=== PATIENT | male | born 1950 | race Caucasian/White ===

== ENCOUNTER 2023-06-06 23:27 | Emergency (ER) | payer MEDICAID ==
[~2023-06-06] VITALS: Ht 160 cm; Wt 71.2 kg
[2023-06-06 23:41] VITALS: BP 137/75; PULSE 60; RESP 16; TEMP 97.3
[2023-06-07 01:49] LABS: BASOPHILS % (AUTO) 0.4 % (0.0-2.0); EOSINOPHILS % (AUTO) 0.3 % (0.0-4.0); HEMATOCRIT 47.5 % (36-52); HEMOGLOBIN 15.8 g/dL (12.0-18.0); LYMPHOCYTES # (AUTO) 0.9 K/uL (2.0-11.5); LYMPHOCYTES % (AUTO) 9.3 % (20.5-51.1); MEAN CORPUSCULAR HEMOGLOBIN 30 pg (27-31); MEAN CORPUSCULAR HGB CONC 33 g/dL (33-37); MEAN CORPUSCULAR VOLUME 89.4 fL (80-94); MONOCYTES # (AUTO) 0.4 K/uL (0.8-1.0); MONOCYTES % (AUTO) 3.7 % (1.7-9.3); NEUTROPHILS # (AUTO) 8.2 K/uL (1.8-7.7); NEUTROPHILS % (AUTO) 86.3 % (42.2-75.2); PLATELET COUNT (AUTO) 206 K/uL (140-450); RED BLOOD CELL COUNT(AUTO) 5.31 MIL/uL (4.20-6.10); RED CELL DISTRIBUTION WIDTH 13.6 % (11.6-13.7); WHITE BLOOD COUNT (AUTO) 9.5 K/uL (4.8-10.8)
[2023-06-07 02:15] LABS: ANION GAP 14.8 (8-16); CALCIUM 9.1 mg/dL (8.5-10.1); CARBON DIOXIDE 25.8 mmol/L (21-32); CHLORIDE 102 mmol/L (98-107); CREATININE 0.8 mg/dL (0.6-1.3); GLUCOSE 128 mg/dL (74-106); POTASSIUM 3.6 mmol/L (3.5-5.1); SODIUM SERUM 139 mmol/L (136-145); UREA NITROGEN, BLOOD 18 mg/dL (7-18)
[2023-06-07 02:20] LABS: ALBUMIN 3.7 g/dL (3.4-5.0); BILIRUBIN,DIRECT 0.1 mg/dL (0.0-0.3); TOTAL BILIRUBIN 0.5 mg/dL (0.0-1.0); TOTAL PROTEIN, SERUM 8.4 g/dL (6.4-8.2)
[2023-06-07 02:27] LABS: LACTIC ACID 0.9 mmol/L (0.4-2.0)
[2023-06-07] MEDS: NACL 0.9% 1,000 ML IV ONE (02:40)
[2023-06-07 02:50] VITALS: O2SAT 98
[2023-06-07 03:23] LABS: APPEARANCE,URINE CLEAR (CLEAR); BILIRUBIN,URINE NEGATIVE (NEGATIVE); BLOOD, URINE 1+ (NEGATIVE); COLOR,URINE YELLOW (YELLOW); LEUKOCYTE ESTERASE ,URINE NEGATIVE (NEGATIVE); NITRITE, URINE NEGATIVE (NEGATIVE); PROTEIN,URINE NEGATIVE (NEGATIVE); UGLUCOSE NEGATIVE (NEGATIVE); UROBILINOGEN,URINE 0.2 EU/dL (0.2 - 1)
[2023-06-07 03:31] VITALS: BP 120/58; PULSE 71; RESP 14; O2SAT 98
[2023-06-07 03:35] LABS: BACTERIA,URINE OCCASSIONAL /HPF (None Seen); SQUAMOUS EPITHELIAL CELL,UR 0-3 (FEW) /LPF (0-3 (FEW)); WBC,URINE NONE SEEN /HPF (0-5)
[2023-06-07] MEDS ORDERED: TAMS0.4C97 PO (04:27)
[2023-06-08] MEDS ORDERED: CIPR500T4 PO (18:19)
== END 2023-06-07 04:33 | disposition home or self-care (01) ==
LOC: MED 23:27
DX: R33.9 Retention of urine, unspecified (principal); Z79.899 Other long term (current) drug therapy
CPT/HCPCS: 36415; 51702; 71045; 80048; 80076; 81001; 83605; 85025; 87040; 87086; 96360; 99284; J7030

== ENCOUNTER 2023-06-08 16:53 | Emergency (ER) | payer MEDICAID ==
[~2023-06-08] VITALS: Ht 160 cm; Wt 71.2 kg
[~2023-06-08 16:53] MED LIST: TAMS0.4C97 PO
[2023-06-08 17:01] VITALS: BP 125/72; PULSE 68; RESP 20; TEMP 97.4; O2SAT 96
[2023-06-08 18:07] LABS: APPEARANCE,URINE CLEAR (CLEAR); BILIRUBIN,URINE NEGATIVE (NEGATIVE); BLOOD, URINE 3+ (NEGATIVE); COLOR,URINE YELLOW (YELLOW); LEUKOCYTE ESTERASE ,URINE 2+ (NEGATIVE); NITRITE, URINE NEGATIVE (NEGATIVE); PROTEIN,URINE TRACE (NEGATIVE); UGLUCOSE NEGATIVE (NEGATIVE); UROBILINOGEN,URINE 0.2 EU/dL (0.2 - 1)
[2023-06-08] MEDS ORDERED: CIPR500T4 PO (18:19)
[2023-06-08 18:24] LABS: BACTERIA,URINE FEW /HPF (None Seen); MUCUS,URINE None Seen /LPF (None Seen); RBC,URINE 11-20 (MOD) /HPF (0-5); SQUAMOUS EPITHELIAL CELL,UR None Seen /LPF (0-3 (FEW))
[2023-06-08 18:25] LABS: TRICHOMONAS,URINE None Seen /HPF (None Seen); WHITE BLOOD CELL CASTS,URINE None Seen /LPF (None Seen); YEAST,URINE None Seen /HPF (None Seen)
[2023-06-08] MEDS: CIPROFLOXACIN 250 MG TAB PO ONE (18:28)
[2023-06-08 18:58] VITALS: BP 125/72; PULSE 68; RESP 20; TEMP 97.4; O2SAT 96
== END 2023-06-08 18:58 | disposition home or self-care (01) ==
LOC: MED 16:53
DX: R33.9 Retention of urine, unspecified (principal); T83.098A Other mechanical complication of other urinary catheter, initial encounter
CPT/HCPCS: 51702; 81001; 87086; 99284

== ENCOUNTER 2023-06-08 22:44 | Emergency (ER) | payer MEDICAID ==
[~2023-06-08] VITALS: Ht 160 cm; Wt 71.2 kg
[~2023-06-08 22:44] MED LIST changes: +CIPR500T4 PO
[2023-06-08 23:07] VITALS: BP 133/72; PULSE 62; RESP 16; TEMP 98.3; O2SAT 98
[2023-06-09 03:30] VITALS: BP 133/72; PULSE 62; RESP 16; TEMP 98.3; O2SAT 98
[2023-06-09] MEDS: MORPHINE SULFATE 4 MG/ML SYR IVP ONE (03:52)
== END 2023-06-09 03:55 | disposition home or self-care (01) ==
LOC: MED 22:44
DX: T83.031A Leakage of indwelling urethral catheter, initial encounter (principal); R33.9 Retention of urine, unspecified; I10 Essential (primary) hypertension; Z79.899 Other long term (current) drug therapy; Y84.6 Urinary catheterization as the cause of abnormal reaction of the patient, or of later complication, without mention of misadventure at the time of the procedure
CPT/HCPCS: 51702; 99284

== ENCOUNTER 2023-06-15 14:10 | Emergency (ER) | payer MEDICAID ==
[~2023-06-15] VITALS: Ht 160 cm; Wt 71.2 kg
[2023-06-15 14:29] VITALS: BP 117/67; PULSE 64; RESP 18; TEMP 98.3; O2SAT 96
[2023-06-15 16:54] VITALS: BP 117/67; PULSE 64; RESP 18; TEMP 98.3; O2SAT 96
== END 2023-06-15 16:54 | disposition home or self-care (01) ==
LOC: MED 14:10
DX: R33.9 Retention of urine, unspecified (principal); T83.098A Other mechanical complication of other urinary catheter, initial encounter; I10 Essential (primary) hypertension; Z79.899 Other long term (current) drug therapy
CPT/HCPCS: 51702; 99284

== ENCOUNTER 2023-08-10 21:18 | Emergency (ER) | payer MEDICAID ==
[~2023-08-10] VITALS: Ht 160 cm; Wt 73.5 kg
[2023-08-10 21:33] VITALS: BP 150/95; PULSE 91; RESP 16; TEMP 98.1; O2SAT 97
[2023-08-10] MEDS ORDERED: CIPR500T4 PO (22:29)
[2023-08-10 22:35] VITALS: BP 130/75; PULSE 81; RESP 16; TEMP 98.1; O2SAT 97
== END 2023-08-10 22:35 | disposition home or self-care (01) ==
LOC: MED 21:18
DX: T83.098A Other mechanical complication of other urinary catheter, initial encounter (principal); N39.0 Urinary tract infection, site not specified; I10 Essential (primary) hypertension; Z79.899 Other long term (current) drug therapy; Y84.6 Urinary catheterization as the cause of abnormal reaction of the patient, or of later complication, without mention of misadventure at the time of the procedure
CPT/HCPCS: 51702; 81002; 87086; 87186; 99284